=== PATIENT | male | born 1940 | race Caucasian/White ===

== ENCOUNTER 2018-04-21 09:40 | Observation (INO) | payer MEDICARE ==
[~2018-04-21] VITALS: Ht 177.8 cm; Wt 102.2 kg
[~2018-04-21 09:40] MED LIST: AMLO5 PO; ASPI81CH PO; ASPI81EC PO; ATEN25 PO; BENAML10/2 PO; BRILINTA90 MG PO; CLOP75 PO; Isosorbide Mono60 MG PO; LISI5 PO; LIVALO2 MG PO; NITR.4SL SL; OMEP20ER PO; Percocet 5-3251 EACH PO; UBID10 PO; Zofran Odt4 MG SL
--- NOTE | 2018-04-21 13:34 | NUR ---
PT RESTING QUIETLY IN BED, DENIES CURRENT NEEDS. VSS. WAITING FOR ADMIT ROOM TO BE CLEANED. DR. VYAS HAS CALLED PT'S , NIKKI, TO UPDATE HER WITH RESULTS OF PROCEDURE AND PLAN TO ADMIT PT OVERNIGHT.
--- NOTE | 2018-04-21 15:55 | NUR ---
Arrival: Pt arrived to unit at approx 1415. VSS. In no apparent sign of distress. Pt is A&Ox4. Calls appropriately. Repositions self. C/o very mild chest discomfort. Pt compliant with R wrist restrictions. R radial access site is free from s/sx of bleed, infection or hematoma. Perfusion and cap refill wnl to all extremities. R wrist immobilizer in place. R TR band inflated with 8mls of air and will start deflating at approx 1630. Pt currently resting in bed with call light within reach. Denies any furher questions, complaints or requests at this time. Will continue to monitor.
--- NOTE | 2018-04-21 16:17 | NUR ---
Shift Summary No acute changes since initial shift assessment. VSS. In no apparent sign of distress. No changes in mentation. Pt has been compliant with R wrist restrictions. Calls appropriately and repositioning self. Denies any pain at this time. Denies any acute complaints or events so far since arrival to unit. R radial access site is free from s/sx of bleed or hematoma. R TR band in place and will deflate starting at approx 1630. Pt is currently resting in bed with call light within reach. Denies any further questions, complaints or requests at this time. Will continue to monitor until report is given to sanju LR.
--- NOTE | 2018-04-21 18:45 | NUR ---
Update: Deflated TR band and removed per protocols/orders at 1845. Clear dressing placed. Site is free from s/sx of bleed or hematoma. R wrist immobilizer placed to R wrist.
--- NOTE | 2018-04-21 19:58 | NUR ---
CARE ASSUMPTION PT A&O X4. R RADIAL ACCESS SITE ASSESSED W/ DAY SHIFT RN. SMALL AMOUNT OF DRY, RED BLOOD. NO NEW BLEEDING, NO HEMATOMA. CLEAR DRESSING COVERING SITE, ARM BOARD IN PLACE W/ PT INSTRUCTION NOT TO BEND OR USE ARM. PT COOPERATIVE. PT DENIES ANY PAIN OR DISCOMFORT. WILL CONTINUE TO MONITOR AND PROVIDE CARE.
--- NOTE | 2018-04-22 04:28 | NUR ---
SHIFT SUMMARY PT A&O X4, INDEPENDENT IN ROOM. R RADIAL ACCESS SITE WNL, NO BLEEDING, NO HEMATOMA, CLEAR DRESSING COVERING SITE, & ARM BOARD IN PLACE. NO C/O CP T/O SHIFT. NO C/O ANY PAIN OR DISCOMFORT. VSS. WILL CONTINUE TO MONITOR AND PROVIDE CARE UNTIL REPORT OFF TO DAY SHIFT RN.
[2018-04-22 05:23] LABS: Hematocrit 44.6 % (37.0-53.0); Hemoglobin 14.7 g/dL (13.5-17.5); Mean Platelet Volume 9.4 fL (9.1-12.4); Platelet Count 220 K/mm3 (150-400); RDW Coefficient Variation 14.9 % (11.7-14.2); RDW Standard Deviation 49.7 fL (35.1-46.3); White Blood Cell Count 10.03 K/mm3 (4.00-11.30)
[2018-04-22 05:25] LABS: Mean Corpuscular Volume 91 fL (80-100)
[2018-04-22 05:47] LABS: Anion Gap 7 mmol/L (6-16); Blood Urea Nitrogen 15 mg/dL (8-24); Bun/Creatinine Ratio 12.9 (12.0-20.0); CO2, Blood 23 mmol/L (21-32); Calcium, Blood 8.6 mg/dL (8.5-10.1); Chloride, Blood 113 mmol/L (98-108); Creatinine, Blood 1.16 mg/dL (0.60-1.20); Glomerular Filtration Rate >60 (60-); Glucose, Blood 90 mg/dL (70-99); Potassium, Blood 4.1 mmol/L (3.5-5.5); Sodium, Blood 143 mmol/L (136-145)
[2018-04-22] MEDS ORDERED: Isosorbide Mono30 MG PO (07:26)
== END 2018-04-22 08:45 | disposition home or self-care (01) ==
LOC: MHTC 09:40 → PCU 12:51
PROVIDERS: Internal Medicine Interventional Cardiology; ADMIT Internal Medicine Cardiovascular Disease
DX: I25.10 Atherosclerotic heart disease of native coronary artery without angina pectoris (principal); I44.0 Atrioventricular block, first degree; I45.2 Bifascicular block; I45.10 Unspecified right bundle-branch block; E78.5 Hyperlipidemia, unspecified; I12.9 Hypertensive chronic kidney disease with stage 1 through stage 4 chronic kidney disease, or unspecified chronic kidney disease; N18.9 Chronic kidney disease, unspecified; G47.33 Obstructive sleep apnea (adult) (pediatric); K21.9 Gastro-esophageal reflux disease without esophagitis; I73.9 Peripheral vascular disease, unspecified; I67.9 Cerebrovascular disease, unspecified; Z95.5 Presence of coronary angioplasty implant and graft; Z79.82 Long term (current) use of aspirin; Z87.891 Personal history of nicotine dependence; Z79.899 Other long term (current) drug therapy; Z88.0 Allergy status to penicillin; Z88.8 Allergy status to other drugs, medicaments and biological substances; Z88.6 Allergy status to analgesic agent; Z79.02 Long term (current) use of antithrombotics/antiplatelets
CPT/HCPCS: 36415; 80048; 85027; 85347; 92978; 93005; 93010; 93458; 93571; 99152; C1769; C1874; C1887; C1894; C9600; G0378; J1644; J3010; J7030; J7040; Q9967

== ENCOUNTER 2020-04-03 09:37 | Observation (INO) | payer MEDICARE ==
[~2020-04-03] VITALS: Ht 177.8 cm; Wt 97.1 kg
[~2020-04-03 09:37] MED LIST changes: -ASPI81CH PO; +Aspirin EC81 MG PO; +Isosorbide Mono30 MG PO
[2020-04-03] MEDS ORDERED: RANOLAZINE ER500 M2 PO (09:54)
[2020-04-03 10:13] LABS: BASOPHILS ABSOLUTE AUTO 0.04 K/mm3 (0.00-0.23); BASOPHILS PERCENT AUTO 0 % (0-2); EOSINOPHILS ABSOLUTE AUTO 0.28 K/mm3 (0.00-0.68); EOSINOPHILS PERCENT AUTO 3 % (0-6); Hematocrit 46.6 % (37.0-53.0); Hemoglobin 15.7 g/dL (13.5-17.5); IMMATURE GRAN ABSOLUTE AUTO 0.02 K/mm3 (0.00-0.10); IMMATURE GRAN PERCENT AUTO 0 % (0-1); LYMPHOCYTES ABSOLUTE AUTO 3.83 K/mm3 (0.84-5.20); LYMPHOCYTES PERCENT AUTO 42 % (21-46); MONOCYTES ABSOLUTE AUTO 1.31 K/mm3 (0.16-1.47); MONOCYTES PERCENT AUTO 14 % (4-13); Mean Corpuscular HGB 30.1 pg (26.0-34.0); Mean Corpuscular HGB Conc 33.7 g/dL (31.5-36.5); Mean Corpuscular Volume 89 fL (80-100); NEUTROPHILS ABSOLUTE AUTO 3.69 K/mm3 (1.96-9.15); NEUTROPHILS PERCENT AUTO 40 % (41-73); Platelet Count 262 K/mm3 (150-400); RDW Standard Deviation 51.6 fL (35.1-46.3); Red Blood Cell Count 5.22 M/mm3 (4.30-5.90); White Blood Cell Count 9.17 K/mm3 (4.00-11.30)
[2020-04-03 10:24] LABS: Alanine Aminotransfer (ALT/SGP 17 U/L (12-78); Albumin, Blood 3.6 g/dL (3.4-5.0); Alk Phos 86 U/L (50-136); Anion Gap 6 mmol/L (6-16); Aspartate Aminotrans (AST/SGOT 16 U/L (12-37); Bilirubin, Total 0.7 mg/dL (0.1-1.0); Blood Urea Nitrogen 23 mg/dL (8-24); Bun/Creatinine Ratio 15.2 (12.0-20.0); CO2, Blood 26 mmol/L (21-32); Calcium, Blood 8.7 mg/dL (8.5-10.1); Chloride, Blood 109 mmol/L (98-108); Creatinine, Blood 1.51 mg/dL (0.60-1.20); Globulin, Blood 3.7 g/dL (2.2-4.0); Glomerular Filtration Rate 48 (60-); Glucose, Blood 105 mg/dL (70-99); Potassium, Blood 3.9 mmol/L (3.5-5.5); Sodium, Blood 141 mmol/L (136-145); Total Protein, Blood 7.3 g/dL (6.4-8.2); Troponin I <0.015 ng/mL (0.000-0.040)
[2020-04-03] MEDS ORDERED: AMLODIPINE BESY10 MG PO (12:07)
[2020-04-03] MEDS ORDERED: Imdur-ER60 MG PO (12:07)
[2020-04-03 13:34] LABS: Source, Urine Voided
[2020-04-03 13:43] LABS: Appearance, Urine Clear (Clear); Bilirubin, Urine Neg (Neg); Blood, Urine Neg (Neg); Color, Urine Yellow (P-Yellow); Glucose Qualitative, Urine Neg (Neg); Ketones, Urine Neg (Neg); Leukocyte Esterase, Urine Neg (Neg); Nitrite, Urine Neg (Neg); Protein, Urine 1+ (Neg); Urobilinogen, Urine NORM (Normal); pH, Urine 6.5 (5.0-8.0)
--- NOTE | 2020-04-03 19:14 | NUR ---
SHIFT SUMMARY: PATIENT ADMIT (OBS) FROM ED THIS SHIFT. PT A&O X4; CALM AND COOPERATIVE WITH CARE. TELE IN PLACE; SR @ 65 PER WINDING INSPECTOR AND TESTER. NO C/O CHEST PAIN OR PRESSURE; TROPONIN AT 1600; ELEVATED AT 0.045; NEXT TROPONIN AT 2200; DR AWARE; PT ASYMPTOMATIC. REPORT GIVEN TO ONCOMING RN.
[2020-04-03 22:34] LABS: Source, Urine Clean Catch
[2020-04-03 22:36] LABS: Bilirubin, Urine Neg (Neg); Blood, Urine Neg (Neg); Glucose Qualitative, Urine Neg (Neg); Ketones, Urine Neg (Neg); Leukocyte Esterase, Urine 1+ (Neg); Nitrite, Urine Neg (Neg); Protein, Urine Neg (Neg); Urobilinogen, Urine NORM (Normal)
[2020-04-03 22:37] LABS: Appearance, Urine Clear (Clear); Color, Urine Yellow (P-Yellow)
[2020-04-03 22:44] LABS: Red Blood Cells, Urine 0-2 /hpf (0-2)
[2020-04-03 22:45] LABS: Bacteria Mod /hpf; Squamous Epithelial Cells Not Seen /hpf (Few)
[2020-04-04 04:51] LABS: BASOPHILS ABSOLUTE AUTO 0.03 K/mm3 (0.00-0.23); BASOPHILS PERCENT AUTO 0 % (0-2); EOSINOPHILS ABSOLUTE AUTO 0.26 K/mm3 (0.00-0.68); EOSINOPHILS PERCENT AUTO 3 % (0-6); Hematocrit 45.7 % (37.0-53.0); Hemoglobin 15.3 g/dL (13.5-17.5); IMMATURE GRAN ABSOLUTE AUTO 0.02 K/mm3 (0.00-0.10); IMMATURE GRAN PERCENT AUTO 0 % (0-1); LYMPHOCYTES ABSOLUTE AUTO 2.92 K/mm3 (0.84-5.20); LYMPHOCYTES PERCENT AUTO 34 % (21-46); MONOCYTES ABSOLUTE AUTO 1.12 K/mm3 (0.16-1.47); MONOCYTES PERCENT AUTO 13 % (4-13); Mean Corpuscular HGB 30.1 pg (26.0-34.0); Mean Corpuscular HGB Conc 33.5 g/dL (31.5-36.5); Mean Corpuscular Volume 90 fL (80-100); Mean Platelet Volume 9.6 fL (9.1-12.4); NEUTROPHILS PERCENT AUTO 50 % (41-73); Platelet Count 244 K/mm3 (150-400); RDW Coefficient Variation 16.1 % (11.7-14.2); Red Blood Cell Count 5.09 M/mm3 (4.30-5.90); White Blood Cell Count 8.65 K/mm3 (4.00-11.30)
[2020-04-04 05:11] LABS: Albumin, Blood 3.3 g/dL (3.4-5.0); Albumin/Globulin Ratio 0.9 (0.8-1.8); Bilirubin, Total 0.7 mg/dL (0.1-1.0); Bun/Creatinine Ratio 13.8 (12.0-20.0); Calcium, Blood 8.8 mg/dL (8.5-10.1); Creatinine, Blood 1.45 mg/dL (0.60-1.20); Globulin, Blood 3.6 g/dL (2.2-4.0); Potassium, Blood 4.1 mmol/L (3.5-5.5); Total Protein, Blood 6.9 g/dL (6.4-8.2)
--- NOTE | 2020-04-04 05:50 | NUR ---
GREEN BUILDING ENERGY ENGINEER SUMMARY PT A&OX4, ABLE TO MAKE NEEDS KNOWN. PLEASANT AND COOPERATIVE TO CARE. NO ACUTE CHANGES NOTED TO PT THIS SHIFT. CALM AND RESTED IN BED T/O SHIFT. TROPONIN AT 2148 IS 0.018. NO C/O CHEST PAIN / PRESSURE, NO SOB, OR N&V. PT AMBULATED TO BATHROOM W/O ANY ISSUES. NO C/O DIZZINESS OR ANY OTHER DISCOMFORT. NO C/O PAIN OR N/T. PT RESTING IN BED AT THIS TIME. CALL LIGHT WITHIN REACH.
[2020-04-04] MEDS ORDERED: LEVFLO500 PO (14:17)
--- NOTE | 2020-04-04 14:59 | NUR ---
PT ABLE TO GET UP AND AMBULATE TO THE BATHROOM AND SHOWER, PT DENIES ANY CHEST PAIN OR DIZZINESS. PT WANTING TO GO HOME. SPOKE WITH DR SAMPSON AND NO NEED FOR PT EVAL. SPOKE WITH [facility] AND THEY WILL BE UP TO PLACE ZIO MONITOR PRIOR TO DISCHARGE.
--- NOTE | 2020-04-04 15:31 | NUR ---
DISCHARGE INSTRUCTIONS REVIEWED WITH PT. IV DC'D INTACT BY RN STUDENT. RX FAXED TO [facility]. [facility] PLACED ZIO PATCH PRIOR TO DISCHARGE. PT ABLE TO GET UP AND AMBULATE TO BATHROOM AND SHOWER INDEP, PT REMAINS ASYMPTOMATIC. PT AWAITING RIDE HOME AT THIS TIME.
--- NOTE | 2020-04-04 15:36 | NUR ---
PT DISCHARGED HOME, ESCORTED OUT VIA W/C AT 1536 TO D/C HOME WITH SPOUSE.
== END 2020-04-04 15:37 | disposition home or self-care (01) ==
LOC: ER 09:37 → MEDS 09:38 → ENPENDDIS 04-04 14:05 → MEDS 04-04 15:37
PROVIDERS: Emergency Medicine; Nurse Practitioner Acute Care; ADMIT Internal Medicine
DX: R55 Syncope and collapse (principal); I10 Essential (primary) hypertension; I25.10 Atherosclerotic heart disease of native coronary artery without angina pectoris; N17.9 Acute kidney failure, unspecified; M25.552 Pain in left hip; E78.5 Hyperlipidemia, unspecified; J44.9 Chronic obstructive pulmonary disease, unspecified; I25.2 Old myocardial infarction; Z88.6 Allergy status to analgesic agent; Z88.0 Allergy status to penicillin; Z88.8 Allergy status to other drugs, medicaments and biological substances; Z79.82 Long term (current) use of aspirin; Z79.899 Other long term (current) drug therapy; Z87.891 Personal history of nicotine dependence; Z95.5 Presence of coronary angioplasty implant and graft
CPT/HCPCS: 36415; 71045; 73502; 80053; 81001; 83735; 83880; 84484; 85025; 87086; 93005; 93010; 93246; 99285-25; A9270; G0378; J7120

== ENCOUNTER 2021-08-18 06:21 | Day surgery (SDC) | payer MEDICARE ==
[~2021-08-18] VITALS: Ht 177.8 cm; Wt 103.8 kg
[~2021-08-18 06:21] MED LIST changes: +AMLODIPINE BESY10 MG PO; +Imdur-ER60 MG PO; +LEVFLO500 PO; +RANOLAZINE ER500 M2 PO
[2021-08-18] MEDS ORDERED: RANO500T (06:51)
[2021-08-18] MEDS ORDERED: FISH OIL 1,2001 EAC7 (06:52)
[2021-08-18] MEDS ORDERED: CLOPIDOGREL75 MG (06:52)
--- NOTE | 2021-08-18 07:31 | NUR ---
08/18/21 0731 ABIMAEL CHURCHILL 2% LIDONCAINE NEB TX 5ML PER DR STANLEY PRE PROCEDURE STARTED [id number]
== END 2021-08-18 09:21 | disposition home or self-care (01) ==
LOC: ORSCSDS 06:21
PROVIDERS: Surgery
PROC: 0DB78ZX Excision of Stomach, Pylorus, Via Natural or Artificial Opening Endoscopic, Diagnostic (ICD-10-PCS; principal; 2021-08-18 07:30)
PROC: 0DBL8ZX Excision of Transverse Colon, Via Natural or Artificial Opening Endoscopic, Diagnostic (ICD-10-PCS; principal; 2021-08-18 07:30)
PROC: 0DBK8ZX Excision of Ascending Colon, Via Natural or Artificial Opening Endoscopic, Diagnostic (ICD-10-PCS; principal; 2021-08-18 07:30)
PROC: 0DBN8ZX Excision of Sigmoid Colon, Via Natural or Artificial Opening Endoscopic, Diagnostic (ICD-10-PCS; principal; 2021-08-18 07:30)
DX: R93.5 Abnormal findings on diagnostic imaging of other abdominal regions, including retroperitoneum (principal); R14.0 Abdominal distension (gaseous); K21.9 Gastro-esophageal reflux disease without esophagitis; D12.2 Benign neoplasm of ascending colon; D12.3 Benign neoplasm of transverse colon; K29.70 Gastritis, unspecified, without bleeding; K57.30 Diverticulosis of large intestine without perforation or abscess without bleeding; G47.33 Obstructive sleep apnea (adult) (pediatric); I25.10 Atherosclerotic heart disease of native coronary artery without angina pectoris; I10 Essential (primary) hypertension; Z87.891 Personal history of nicotine dependence; E78.5 Hyperlipidemia, unspecified; Z79.899 Other long term (current) drug therapy; Z79.02 Long term (current) use of antithrombotics/antiplatelets
CPT/HCPCS: 88305; J2704; J7120

== ENCOUNTER 2022-06-13 15:23 | Inpatient (IN) | payer MEDICARE ==
[~2022-06-13] VITALS: Ht 177.8 cm; Wt 102.5 kg
[~2022-06-13 15:23] MED LIST changes: +CLOPIDOGREL75 MG; +FISH OIL 1,2001 EAC7; +RANO500T PO
[2022-06-13 15:56] LABS: BASOPHILS ABSOLUTE AUTO 0.06 K/mm3 (0.00-0.23); BASOPHILS PERCENT AUTO 1 % (0-2); EOSINOPHILS ABSOLUTE AUTO 0.54 K/mm3 (0.00-0.68); EOSINOPHILS PERCENT AUTO 6 % (0-6); Hematocrit 50.7 % (37.0-53.0); Hemoglobin 16.9 g/dL (13.5-17.5); IMMATURE GRAN ABSOLUTE AUTO 0.01 K/mm3 (0.00-0.10); IMMATURE GRAN PERCENT AUTO 0 % (0-1); LYMPHOCYTES ABSOLUTE AUTO 4.28 K/mm3 (0.84-5.20); LYMPHOCYTES PERCENT AUTO 43 % (21-46); MONOCYTES ABSOLUTE AUTO 0.95 K/mm3 (0.16-1.47); MONOCYTES PERCENT AUTO 10 % (4-13); Mean Corpuscular HGB 29.6 pg (26.0-34.0); Mean Corpuscular HGB Conc 33.3 g/dL (31.5-36.5); Mean Corpuscular Volume 89 fL (80-100); Mean Platelet Volume 9.3 fL (9.1-12.4); NEUTROPHILS ABSOLUTE AUTO 4.02 K/mm3 (1.96-9.15); NEUTROPHILS PERCENT AUTO 41 % (41-73); Platelet Count 272 K/mm3 (150-400); RDW Coefficient Variation 17.3 % (11.7-14.2); RDW Standard Deviation 54.8 fL (35.1-46.3); Red Blood Cell Count 5.71 M/mm3 (4.30-5.90); White Blood Cell Count 9.86 K/mm3 (4.00-11.30)
[2022-06-13 16:11] LABS: Albumin, Blood 4.2 g/dL (3.4-5.0); Albumin/Globulin Ratio 1.2 (0.8-1.8); Bilirubin, Total 0.6 mg/dL (0.1-1.0); Bun/Creatinine Ratio 12.1 (12.0-20.0); Calcium, Blood 9.2 mg/dL (8.5-10.1); Creatinine, Blood 1.32 mg/dL (0.60-1.20); Globulin, Blood 3.5 g/dL (2.2-4.0); Potassium, Blood 4.3 mmol/L (3.5-5.5); Total Protein, Blood 7.7 g/dL (6.4-8.2)
[2022-06-13 19:19] LABS: Anti-Xa UFH, PHA Monitoring <0.10 IU/mL; Prothrombin Time Results 10.5 Sec (9.7-11.5)
[2022-06-14 02:21] LABS: Hematocrit 46.5 % (37.0-53.0); Hemoglobin 15.7 g/dL (13.5-17.5); Mean Corpuscular HGB 29.5 pg (26.0-34.0); Mean Corpuscular HGB Conc 33.8 g/dL (31.5-36.5); Mean Corpuscular Volume 87 fL (80-100); Mean Platelet Volume 9.5 fL (9.1-12.4); Platelet Count 230 K/mm3 (150-400); RDW Coefficient Variation 17.1 % (11.7-14.2); RDW Standard Deviation 53.7 fL (35.1-46.3); Red Blood Cell Count 5.32 M/mm3 (4.30-5.90)
[2022-06-14 02:35] LABS: Bun/Creatinine Ratio 10.3 (12.0-20.0); Calcium, Blood 8.9 mg/dL (8.5-10.1); Creatinine, Blood 1.17 mg/dL (0.60-1.20)
--- NOTE | 2022-06-14 06:21 | NUR ---
SHIFT SUMMARY PT WAS ADMITTED LAST NIGHT FOR AN NSTEMI. TROP'S HAVE NOT PEAKED YET WITH THE LAST ONE REPORTED [id number]. PT HAS BEEN NPO FOR A POSSIBLE PROCEDURE TODAY. HE HAS A HEP GTT RUNNING AT 13 U/KG/HR. HE ONLY HAS ONE C/O ANGINA AND IT WAS AFTER HE AMBULATED IN THE ROOM. HE STATED THAT IT WAS SHARP AND WENT AWAY ONCE HE WAS RESTING. HE HAS BEEN SR ON TELE, SP02>90% ON ROOM AIR, AND BP HAS BEEN STABLE. PT HAS HAD NO COMPLAINTS THIS SHIFT, HE JUST IS WAITING FOR A PROCEDURE. PT IS A&OX4 AND CALLS APPROPRIATELY. SEE NOTES FOR ANY UPDATES. ,
--- NOTE | 2022-06-14 07:39 | NUR ---
DR MARIN TO BEDSIDE FOR INFORMED CONSENT FOR ANGIO. VERBAL ORDER GIVEN TO STOP HEPARIN GTT AND REMOVE R WRIST IV. HEPARIN STOPPED AND IV REMOVED. PATIENT ALERT AND ORIENTED. RESTING COMFORTABLY IN BED AT THIS TIME. SPEAKING WITH ON THE PHONE.
--- NOTE | 2022-06-14 12:09 | NUR ---
ECHO COMPLETED AT 0930. PATIENT IMMEDIATELY TAKEN TO THERMOMETER TESTER. 1145 THERMOMETER TESTER RN CALLED PCU TO INFORM THAT PATIENT WILL REQUIRE A NITRO DRIP AND A ROOM IN ICU FOR MONITORING. SON CALLED AND WAS UPDATED. REPORT CALLED TO CIERA DAVIDSON RN IN ICU AT 1205.
--- NOTE | 2022-06-14 17:36 | NUR ---
SUMMARY Assumed care of pt on arrival from [facility] at 1153. Report received from [facility] staff and PCU nurse. Pt transferred to ICU for nitroglycerin drip. Per report, pt has blockage to circumflex that could not be accessed. Plan to transfer patient to another facility. On arrival, pt reports 6/10 chest pain. He states that during this hospitalization, the best his pain has been is a 2/10 and the worst is 9/10. Educated pt on nitro drip and morphine. Morphine given. Pt oriented to unit an transfer process. Aggrastat drip started. Pt received assigment in Coronary Care Unit, bed 11, at [facility]. Report called to Lex LR. Pt transported via [facility]. Prior to departure, noted that pt's BP dropped. Nitro titrated down, pt continued to report 5/10 CP. BP did not improve. Drip stopped and Dr Mueller notified. Provider ordered fluid bolus and dopamine drip so that nitro could be restarted. Attempted additional IV, unsuccessful. By the time Dr Mueller rounded on patient, BP had improved in total absence of nitro and pt stated his chest pain was gone. Provider ordered for pt to be transported on aggrastat only. Lex LR updated on changes and pt departed from facility at 1640.
== END 2022-06-14 16:40 | disposition short-term general hospital (02) | DRG 282 ==
LOC: ER 15:23 → ICUW 19:38 → PCU 19:38 → ICUW 06-14 12:07
PROVIDERS: Nurse Practitioner Acute Care; Pharmacist; Student in an Organized Health Care Education/Training Program; ADMIT Internal Medicine
PROC: 4A023N7 Measurement of Cardiac Sampling and Pressure, Left Heart, Percutaneous Approach (ICD-10-PCS; principal; 2022-06-14)
PROC: B211YZZ Fluoroscopy of Multiple Coronary Arteries using Other Contrast (ICD-10-PCS; 2022-06-14)
PROC: B24BZZ3 Ultrasonography of Heart with Aorta, Intravascular (ICD-10-PCS; 2022-06-14)
DX: I21.4 Non-ST elevation (NSTEMI) myocardial infarction (principal); E78.5 Hyperlipidemia, unspecified; I12.9 Hypertensive chronic kidney disease with stage 1 through stage 4 chronic kidney disease, or unspecified chronic kidney disease; I73.9 Peripheral vascular disease, unspecified; N18.32 Chronic kidney disease, stage 3b; I25.10 Atherosclerotic heart disease of native coronary artery without angina pectoris; R73.9 Hyperglycemia, unspecified; Z95.828 Presence of other vascular implants and grafts; Z95.5 Presence of coronary angioplasty implant and graft; Z90.49 Acquired absence of other specified parts of digestive tract; Z98.890 Other specified postprocedural states; Z98.52 Vasectomy status; Z87.891 Personal history of nicotine dependence; Z88.0 Allergy status to penicillin; Z88.8 Allergy status to other drugs, medicaments and biological substances; Z79.82 Long term (current) use of aspirin; Z79.899 Other long term (current) drug therapy
CPT/HCPCS: 36415; 71046; 76937; 80048; 80053; 83036; 84484; 85025; 85027; 85347; 85520; 85610; 85730; 93005; 93010; 93454; 96365; 96366; 99152; 99153; 99285-25; A9270; C1769; C1887; C1894; C8929; J1265; J1644; J2250; J2270; J3010; J3246; J7030; J7050; Q9957; Q9967

== ENCOUNTER 2022-10-17 15:20 | Inpatient (IN) | payer MEDICARE | END 2022-10-19 15:10 | disposition home health service (06) | DRG 66 | LOC: ER 15:20 → ICUE 15:21 | PROVIDERS: ADMIT Student in an Organized Health Care Education/Training Program | DX: I62.01 Nontraumatic acute subdural hemorrhage (principal); I62.02 Nontraumatic subacute subdural hemorrhage; E78.5 Hyperlipidemia, unspecified; I10 Essential (primary) hypertension; I73.9 Peripheral vascular disease, unspecified; I25.10 Atherosclerotic heart disease of native coronary artery without angina pectoris; N40.0 Benign prostatic hyperplasia without lower urinary tract symptoms; R47.81 Slurred speech; R29.810 Facial weakness; G47.33 Obstructive sleep apnea (adult) (pediatric); Z88.0 Allergy status to penicillin; Z88.8 Allergy status to other drugs, medicaments and biological substances; Z79.82 Long term (current) use of aspirin; Z79.01 Long term (current) use of anticoagulants; Z79.899 Other long term (current) drug therapy; I25.2 Old myocardial infarction; Z90.49 Acquired absence of other specified parts of digestive tract; Z98.52 Vasectomy status; Z95.5 Presence of coronary angioplasty implant and graft; Z87.891 Personal history of nicotine dependence; Z98.890 Other specified postprocedural states; Z86.79 Personal history of other diseases of the circulatory system; Z86.74 Personal history of sudden cardiac arrest; Z95.0 Presence of cardiac pacemaker; Z95.820 Peripheral vascular angioplasty status with implants and grafts ==

== ENCOUNTER 2022-10-25 11:26 | Emergency (ER) | payer MEDICARE ==
[~2022-10-25] VITALS: Ht 177.8 cm; Wt 113.4 kg
[~2022-10-25 11:26] MED LIST changes: +CARVEDILOL6.25 MG PO; +CEPH500 PO; +EZETIMIBE10 M6 PO; +ISOSORBIDE MONO30 MG PO; +LEVE500 PO; +PLAVIX75 MG PO; +TAMS.4ER PO
[2022-10-25 12:30] LABS: Albumin, Blood 3.5 g/dL (3.4-5.0); Albumin/Globulin Ratio 1.1 (0.8-1.8); Bilirubin, Total 0.8 mg/dL (0.1-1.0); Bun/Creatinine Ratio 13.2 (12.0-20.0); Calcium, Blood 9.1 mg/dL (8.5-10.1); Creatinine, Blood 1.52 mg/dL (0.60-1.20); Globulin, Blood 3.2 g/dL (2.2-4.0); Potassium, Blood 5.1 mmol/L (3.5-5.5); Total Protein, Blood 6.7 g/dL (6.4-8.2)
[2022-10-25 13:22] LABS: BASOPHILS ABSOLUTE AUTO 0.05 K/mm3 (0.00-0.23); BASOPHILS PERCENT AUTO 1 % (0-2); EOSINOPHILS ABSOLUTE AUTO 0.48 K/mm3 (0.00-0.68); EOSINOPHILS PERCENT AUTO 5 % (0-6); Hematocrit 42.1 % (37.0-53.0); IMMATURE GRAN ABSOLUTE AUTO 0.02 K/mm3 (0.00-0.10); IMMATURE GRAN PERCENT AUTO 0 % (0-1); LYMPHOCYTES PERCENT AUTO 19 % (21-46); MONOCYTES ABSOLUTE AUTO 1.05 K/mm3 (0.16-1.47); MONOCYTES PERCENT AUTO 11 % (4-13); Mean Corpuscular HGB 29.7 pg (26.0-34.0); Mean Corpuscular HGB Conc 33.3 g/dL (31.5-36.5); Mean Corpuscular Volume 89 fL (80-100); Mean Platelet Volume 9.8 fL (9.1-12.4); NEUTROPHILS ABSOLUTE AUTO 6.11 K/mm3 (1.96-9.15); NEUTROPHILS PERCENT AUTO 64 % (41-73); Platelet Count 359 K/mm3 (150-400); RDW Coefficient Variation 16.6 % (11.7-14.2); RDW Standard Deviation 54.1 fL (35.1-46.3); Red Blood Cell Count 4.72 M/mm3 (4.30-5.90); White Blood Cell Count 9.51 K/mm3 (4.00-11.30)
[2022-10-25 15:11] VITALS: BP 112/68
== END 2022-10-25 15:13 | disposition home or self-care (01) ==
LOC: ER 11:26
PROVIDERS: Emergency Medicine
DX: I62.00 Nontraumatic subdural hemorrhage, unspecified (principal); Z87.891 Personal history of nicotine dependence; Z88.0 Allergy status to penicillin; Z88.8 Allergy status to other drugs, medicaments and biological substances; Z88.6 Allergy status to analgesic agent
CPT/HCPCS: 36415; 70450; 80053; 85025; 93005; 93010; 96360; 99285-25; J7030

== ENCOUNTER 2024-11-01 09:02 | Emergency (ER) | payer OTHER ==
[~2024-11-01] VITALS: Ht 177.8 cm; Wt 98.9 kg
[~2024-11-01 09:02] MED LIST changes: +ACET325 PO; +FAMO20 PO; +LINZESS145 MCG PO
[2024-11-01] MEDS ORDERED: METO25ER PO (09:32)
[2024-11-01] MEDS ORDERED: ATOR10 PO (09:33)
[2024-11-01 09:36] LABS: BASOPHILS ABSOLUTE AUTO 0.04 K/mm3 (0.00-0.23); BASOPHILS PERCENT AUTO 0 % (0-2); EOSINOPHILS ABSOLUTE AUTO 0.02 K/mm3 (0.00-0.68); EOSINOPHILS PERCENT AUTO 0 % (0-6); Hematocrit 50.1 % (37.0-53.0); Hemoglobin 17.0 g/dL (13.5-17.5); IMMATURE GRAN ABSOLUTE AUTO 0.05 K/mm3 (0.00-0.10); IMMATURE GRAN PERCENT AUTO 1 % (0-1); LYMPHOCYTES ABSOLUTE AUTO 1.39 K/mm3 (0.84-5.20); LYMPHOCYTES PERCENT AUTO 15 % (21-46); MONOCYTES ABSOLUTE AUTO 1.52 K/mm3 (0.16-1.47); MONOCYTES PERCENT AUTO 16 % (4-13); Mean Corpuscular HGB Conc 33.9 g/dL (31.5-36.5); Mean Corpuscular Volume 89 fL (80-100); NEUTROPHILS ABSOLUTE AUTO 6.28 K/mm3 (1.96-9.15); NEUTROPHILS PERCENT AUTO 68 % (41-73); NRBC ABSOLUTE 0.00 K/mm3 (0.00-0.02); NRBC Auto 0.0 /100 WBC (0.0-0.2); Platelet Count 198 K/mm3 (150-400); RDW Coefficient Variation 16.1 % (11.7-14.2); RDW Standard Deviation 52.5 fL (35.1-46.3)
[2024-11-01 09:52] LABS: Alanine Aminotransfer (ALT/SGP 14.0 U/L (12-78); Albumin, Blood 3.4 g/dL (3.4-5.0); Albumin/Globulin Ratio 0.8 (0.8-1.8); Anion Gap 9.0 mmol/L (3-11); Aspartate Aminotrans (AST/SGOT 42.0 U/L (12-37); Bilirubin, Total 0.7 mg/dL (0.1-1.0); Blood Urea Nitrogen 23.0 mg/dL (8-24); CO2, Blood 22.0 mmol/L (21-32); Calcium, Blood 8.6 mg/dL (8.5-10.1); Chloride, Blood 108.0 mmol/L (98-108); Creatinine, Blood 1.52 mg/dL (0.60-1.20); Globulin, Blood 4.3 g/dL (2.2-4.0); Glucose, Blood 101.0 mg/dL (70-99); Potassium, Blood 5.2 mmol/L (3.5-5.5); Sodium, Blood 134.0 mmol/L (136-145); Total Protein, Blood 7.7 g/dL (6.4-8.2)
[2024-11-01] MEDS ORDERED: Ipratropium/Albuterol SulF 2.5-0.5MG/3 ML Amp INH ONE (11:30)
[2024-11-01 13:06] LABS: CORONAVIRUS COVID-19 AG Negative (NEGATIVE)
[2024-11-01 14:43] LABS: Source, Urine Clean Catch
[2024-11-01 14:49] LABS: Bilirubin, Urine Neg (Neg); Color, Urine Yellow (P-Yellow); Glucose Qualitative, Urine Neg (Neg); Ketones, Urine 2+ (Neg); Leukocyte Esterase, Urine Neg (Neg); Protein, Urine 2+ (Neg); Specific Gravity, Urine 1.020 (1.003-1.022); Urobilinogen, Urine NORM (Normal)
[2024-11-01 15:28] LABS: Red Blood Cells, Urine 0-2 /hpf (0-2); White Blood Cells, Urine 0-2 /hpf (0-5)
[2024-11-01 16:07] LABS: Influenza A/2009-H1 Not Detected (NOT DETECT); SARS-Cov-2 (COVID-19), BioFire Not Detected (NOT DETECT)
[2024-11-01] MEDS ORDERED: AMOCLA875 PO (16:17)
[2024-11-01 16:30] VITALS: BP 130/72
== END 2024-11-01 17:06 | disposition home or self-care (01) ==
LOC: ER 09:02
PROVIDERS: Emergency Medicine
DX: J98.8 Other specified respiratory disorders (principal); I25.2 Old myocardial infarction; E78.5 Hyperlipidemia, unspecified; I10 Essential (primary) hypertension; I25.10 Atherosclerotic heart disease of native coronary artery without angina pectoris; Z91.89 Other specified personal risk factors, not elsewhere classified; Z87.891 Personal history of nicotine dependence; Z95.5 Presence of coronary angioplasty implant and graft; Z95.0 Presence of cardiac pacemaker; Z88.6 Allergy status to analgesic agent; Z88.8 Allergy status to other drugs, medicaments and biological substances; Z88.0 Allergy status to penicillin; Z79.82 Long term (current) use of aspirin; Z79.02 Long term (current) use of antithrombotics/antiplatelets; Z79.899 Other long term (current) drug therapy; Z91.010 Allergy to peanuts
CPT/HCPCS: 0202U; 36415; 71046; 80053; 81001; 83605; 83880; 84443; 84484; 85025; 87040; 87428-QW; 93005; 93010; 99284-25; A9270

== ENCOUNTER 2024-11-08 18:48 | Emergency (ER) | payer OTHER ==
[~2024-11-08] VITALS: Ht 180.3 cm; Wt 95.2 kg
[~2024-11-08 18:48] MED LIST changes: +AMOCLA875 PO; +ATOR10 PO; +METO25ER PO
[2024-11-08 19:10] LABS: BASOPHILS ABSOLUTE AUTO 0.04 K/mm3 (0.00-0.23); BASOPHILS PERCENT AUTO 0 % (0-2); EOSINOPHILS ABSOLUTE AUTO 0.50 K/mm3 (0.00-0.68); EOSINOPHILS PERCENT AUTO 4 % (0-6); Hematocrit 45.3 % (37.0-53.0); Hemoglobin 15.1 g/dL (13.5-17.5); IMMATURE GRAN ABSOLUTE AUTO 0.04 K/mm3 (0.00-0.10); IMMATURE GRAN PERCENT AUTO 0 % (0-1); LYMPHOCYTES ABSOLUTE AUTO 2.08 K/mm3 (0.84-5.20); LYMPHOCYTES PERCENT AUTO 16 % (21-46); MONOCYTES ABSOLUTE AUTO 1.31 K/mm3 (0.16-1.47); MONOCYTES PERCENT AUTO 10 % (4-13); Mean Corpuscular HGB Conc 33.3 g/dL (31.5-36.5); Mean Corpuscular Volume 89 fL (80-100); NEUTROPHILS ABSOLUTE AUTO 8.72 K/mm3 (1.96-9.15); NEUTROPHILS PERCENT AUTO 69 % (41-73); NRBC ABSOLUTE 0.00 K/mm3 (0.00-0.02); NRBC Auto 0.0 /100 WBC (0.0-0.2); Platelet Count 296 K/mm3 (150-400); RDW Coefficient Variation 15.9 % (11.7-14.2); RDW Standard Deviation 51.8 fL (35.1-46.3)
[2024-11-08 19:31] LABS: Alanine Aminotransfer (ALT/SGP 46.0 U/L (12-78); Albumin, Blood 3.3 g/dL (3.4-5.0); Albumin/Globulin Ratio 0.9 (0.8-1.8); Anion Gap 6.0 mmol/L (3-11); Aspartate Aminotrans (AST/SGOT 34.0 U/L (12-37); Bilirubin, Total 0.7 mg/dL (0.1-1.0); Blood Urea Nitrogen 24.0 mg/dL (8-24); CO2, Blood 26.0 mmol/L (21-32); Calcium, Blood 9.4 mg/dL (8.5-10.1); Chloride, Blood 108.0 mmol/L (98-108); Creatinine, Blood 1.28 mg/dL (0.60-1.20); Globulin, Blood 3.7 g/dL (2.2-4.0); Glucose, Blood 105.0 mg/dL (70-99); Potassium, Blood 4.4 mmol/L (3.5-5.5); Sodium, Blood 136.0 mmol/L (136-145); Total Protein, Blood 7.0 g/dL (6.4-8.2)
[2024-11-08 20:00] VITALS: BP 108/63
== END 2024-11-08 20:20 | disposition home or self-care (01) ==
LOC: ER 18:48
PROVIDERS: Emergency Medicine
DX: R07.2 Precordial pain (principal); I10 Essential (primary) hypertension; E78.5 Hyperlipidemia, unspecified; I25.2 Old myocardial infarction; Z88.8 Allergy status to other drugs, medicaments and biological substances; Z79.82 Long term (current) use of aspirin; Z79.899 Other long term (current) drug therapy; Z88.0 Allergy status to penicillin
CPT/HCPCS: 71046; 80053; 84484; 85025; 93005; 93010; 99285-25

== ENCOUNTER 2024-11-11 02:58 | Observation (INO) | payer OTHER ==
[~2024-11-11] VITALS: Ht 177.8 cm; Wt 97.8 kg
[2024-11-11 03:22] LABS: BASOPHILS ABSOLUTE AUTO 0.04 K/mm3 (0.00-0.23); BASOPHILS PERCENT AUTO 0 % (0-2); EOSINOPHILS ABSOLUTE AUTO 0.44 K/mm3 (0.00-0.68); EOSINOPHILS PERCENT AUTO 5 % (0-6); Hematocrit 43.8 % (37.0-53.0); Hemoglobin 15.0 g/dL (13.5-17.5); IMMATURE GRAN ABSOLUTE AUTO 0.03 K/mm3 (0.00-0.10); IMMATURE GRAN PERCENT AUTO 0 % (0-1); LYMPHOCYTES ABSOLUTE AUTO 3.34 K/mm3 (0.84-5.20); LYMPHOCYTES PERCENT AUTO 34 % (21-46); MONOCYTES ABSOLUTE AUTO 1.55 K/mm3 (0.16-1.47); MONOCYTES PERCENT AUTO 16 % (4-13); Mean Corpuscular HGB Conc 34.2 g/dL (31.5-36.5); Mean Corpuscular Volume 89 fL (80-100); NEUTROPHILS ABSOLUTE AUTO 4.48 K/mm3 (1.96-9.15); NEUTROPHILS PERCENT AUTO 45 % (41-73); NRBC ABSOLUTE 0.00 K/mm3 (0.00-0.02); NRBC Auto 0.0 /100 WBC (0.0-0.2); Platelet Count 333 K/mm3 (150-400); RDW Coefficient Variation 16.5 % (11.7-14.2); RDW Standard Deviation 53.6 fL (35.1-46.3)
[2024-11-11 04:23] LABS: Alanine Aminotransfer (ALT/SGP 33.0 U/L (12-78); Albumin, Blood 3.1 g/dL (3.4-5.0); Albumin/Globulin Ratio 0.8 (0.8-1.8); Anion Gap 11.0 mmol/L (3-11); Aspartate Aminotrans (AST/SGOT 29.0 U/L (12-37); Bilirubin, Total 0.5 mg/dL (0.1-1.0); Blood Urea Nitrogen 23.0 mg/dL (8-24); CO2, Blood 24.0 mmol/L (21-32); Calcium, Blood 8.7 mg/dL (8.5-10.1); Chloride, Blood 110.0 mmol/L (98-108); Creatinine, Blood 1.32 mg/dL (0.60-1.20); Globulin, Blood 3.7 g/dL (2.2-4.0); Glucose, Blood 100.0 mg/dL (70-99); Potassium, Blood 4.7 mmol/L (3.5-5.5); Sodium, Blood 140.0 mmol/L (136-145); Total Protein, Blood 6.8 g/dL (6.4-8.2)
[2024-11-11] MEDS ORDERED: NS 1,000 ML IV ONE ×2 (06:20→07:22)
[2024-11-11] MEDS ORDERED: FentaNYL Citrate 50 MCG/ML 2 ML Injection IV PRN ×2 (06:20→08:25)
[2024-11-11] MEDS ORDERED: Ondansetron HCl 2 MG / ML 2ML Vial IV PRN (06:20)
[2024-11-11 08:24] LABS: Influenza A, PCR NEGATIVE (NEGATIVE); Influenza B, PCR NEGATIVE (NEGATIVE); Resp Syncytial Virus, PCR NEGATIVE (NEGATIVE); SARS-Cov-2 (COVID-19) PCR, MMC NEGATIVE (NEGATIVE)
--- NOTE | 2024-11-11 08:30 | NUR ---
ARRIVAL TO PCU 5 PT ARRIVED TO PCU 5 AT APPROXIMATELY 0800. PT STOOD AND TRANSFERED FROM [facility] WITH [facility]. PT A&Ox4, COMMUNICATES NEEDS APPROPRIATELY, ORIENTED TO CALL LIGHT/UNIT. BP STABLE, SINUS/PACED 60-80's, DENIES CP/PRESSURE. SpO2> 92% RA, DENIES SOB. NO C/O PAIN. CALL LIGHT IN REACH, BED IN LOWEST POSITION.
[2024-11-11 09:05] VITALS: BP 150/79
[2024-11-11 09:35] LABS: Anti-Xa UFH, PHA Monitoring <0.10 IU/mL; Prothrombin Time Results 11.8 Sec (9.7-11.5)
[2024-11-11] MEDS ORDERED: Dose Adjust by Pharmacy XX STA (09:48)
[2024-11-11] MEDS ORDERED: Heparin Sodium,Porcine/0.5 NS 500 ML IV SCH (09:50)
[2024-11-11] MEDS ORDERED: Heparin Sodium 5000 Units/ML 1ML MDV IV ONE (09:50)
[2024-11-11 12:27] VITALS: BP 138/59
[2024-11-11 15:09] VITALS: BP 141/60
--- NOTE | 2024-11-11 17:43 | NUR ---
SHIFT SUMMARY SEE PREVIOUS NOTE, NO ACUTE CHANGES. VITAL SIGNS REMAINED STABLE, NO EPISODES OF CP/PRESSURE SINCE ARRIVAL TO PCU. SpO2> 92% RA, DENIES SOB. BP STABLE, SINUS/PACED 60-80's. STRESS TEST COMPLETE WITH SHIFT. HEPARIN gtt INSUFING PER EMAR MANAGED BY PHARMACY. NO OTHER EVENTS, WILL REPORT TO ONCOMING RN.
[2024-11-11 19:57] VITALS: BP 127/62
[2024-11-12 00:44] VITALS: BP 144/65
[2024-11-12 03:10] VITALS: BP 124/66
[2024-11-12 03:14] LABS: BASOPHILS ABSOLUTE AUTO 0.05 K/mm3 (0.00-0.23); BASOPHILS PERCENT AUTO 1 % (0-2); EOSINOPHILS ABSOLUTE AUTO 0.48 K/mm3 (0.00-0.68); EOSINOPHILS PERCENT AUTO 5 % (0-6); Hematocrit 40.8 % (37.0-53.0); Hemoglobin 13.6 g/dL (13.5-17.5); IMMATURE GRAN ABSOLUTE AUTO 0.02 K/mm3 (0.00-0.10); IMMATURE GRAN PERCENT AUTO 0 % (0-1); LYMPHOCYTES ABSOLUTE AUTO 3.42 K/mm3 (0.84-5.20); LYMPHOCYTES PERCENT AUTO 39 % (21-46); MONOCYTES ABSOLUTE AUTO 1.22 K/mm3 (0.16-1.47); MONOCYTES PERCENT AUTO 14 % (4-13); Mean Corpuscular HGB Conc 33.3 g/dL (31.5-36.5); Mean Corpuscular Volume 89 fL (80-100); NEUTROPHILS ABSOLUTE AUTO 3.68 K/mm3 (1.96-9.15); NEUTROPHILS PERCENT AUTO 41 % (41-73); NRBC ABSOLUTE 0.00 K/mm3 (0.00-0.02); NRBC Auto 0.0 /100 WBC (0.0-0.2); Platelet Count 310 K/mm3 (150-400); RDW Coefficient Variation 16.4 % (11.7-14.2); RDW Standard Deviation 52.9 fL (35.1-46.3)
[2024-11-12 03:36] LABS: Alanine Aminotransfer (ALT/SGP 26.0 U/L (12-78); Albumin, Blood 2.9 g/dL (3.4-5.0); Albumin/Globulin Ratio 0.9 (0.8-1.8); Anion Gap 8.0 mmol/L (3-11); Aspartate Aminotrans (AST/SGOT 20.0 U/L (12-37); Bilirubin, Total 0.6 mg/dL (0.1-1.0); Blood Urea Nitrogen 22.0 mg/dL (8-24); CO2, Blood 26.0 mmol/L (21-32); Calcium, Blood 8.6 mg/dL (8.5-10.1); Chloride, Blood 110.0 mmol/L (98-108); Creatinine, Blood 1.32 mg/dL (0.60-1.20); Globulin, Blood 3.4 g/dL (2.2-4.0); Glucose, Blood 94.0 mg/dL (70-99); Potassium, Blood 4.5 mmol/L (3.5-5.5); Sodium, Blood 139.0 mmol/L (136-145); Total Protein, Blood 6.3 g/dL (6.4-8.2)
[2024-11-12] MEDS ORDERED: Dose Adjust by Pharmacy XX STA (03:55)
--- NOTE | 2024-11-12 05:55 | NUR ---
SHIFT SUMMARY PT A&O X4, PT IS FORGETFUL AT TIMES. HR IN THE 60'S-70'S, SR WITH PACED BEATS, HE DENIES ANY CP/PRESSURE, SBP STABLE. SpO2 >92% ON RA, HE DENIES ANY SOB. PT UP AT SIDE OF BED USING URINAL T/O SHIFT. HEPARIN GTT INFUSING PER EMAR. PT NPO SINCE [place] PENDING CARDIOLOGY REVIEW OF STRESS TEST. PT DENIES ANY QUESTIONS OR CONCERNS AT THIS TIME. CALL LIGHT IN REACH. WILL MONITOR PT AND REPORT TO ONCOMING RN.
[2024-11-12 08:50] VITALS: BP 130/62
[2024-11-12] MEDS ORDERED: Isosorbide Mononitrate 30 MG TABCR PO SCH (09:00)
[2024-11-12] MEDS ORDERED: Isosorbide Mononitrate 60 MG TABCR PO SCH (09:00)
[2024-11-12 11:39] VITALS: BP 129/55
[2024-11-12] MEDS ORDERED: METO25ER PO (14:18)
--- NOTE | 2024-11-12 17:24 | NUR ---
SHIFT SUMMARY A&Ox4, CALLS AND COMMUNICATES NEEDS APPROPRIATELY. SpO2> 92% RA, DENIES SOB. BP STABLE, PACED 60's DENIES CP/PRESSURE. BARIUM SWALLOW DONE THIS SHIFT. HEPARIN gtt INSUFING PER EMAR MANAGED BY PHARMACY TURNING OFF AT 1800 FOR DISCHARGE PER CARDIOLOGY. NO C/O PAIN. CONTINENT OF URINE AND BOWEL. NO OTHER EVENTS, WILL REPORT TO ONCOMING RN.
--- NOTE | 2024-11-12 18:42 | NUR ---
DISCHARGE SUMMARY SEE PREVIOUS NOTE. NO ACUTE CHANGES. DISCHARGE INSTRUCTIONS PROVIDED WITH FAMILY AT BEDSIDE. PT TAKEN OUT BY CLINICAL STAFF VIA WHEELCHAIR WITH ALL PT BELONGINGS AT APPROXIMATELY 1810.
== END 2024-11-12 18:50 | disposition home or self-care (01) ==
LOC: ER 02:58 → PCU 02:59
PROVIDERS: Emergency Medicine; Family Medicine; ADMIT Internal Medicine
DX: I21.4 Non-ST elevation (NSTEMI) myocardial infarction (principal); I25.10 Atherosclerotic heart disease of native coronary artery without angina pectoris; I73.9 Peripheral vascular disease, unspecified; I44.2 Atrioventricular block, complete; I10 Essential (primary) hypertension; E78.5 Hyperlipidemia, unspecified; R13.10 Dysphagia, unspecified; Z87.891 Personal history of nicotine dependence; Z79.02 Long term (current) use of antithrombotics/antiplatelets; Z79.82 Long term (current) use of aspirin; Z79.899 Other long term (current) drug therapy; Z88.0 Allergy status to penicillin; Z88.6 Allergy status to analgesic agent; Z88.8 Allergy status to other drugs, medicaments and biological substances; Z95.0 Presence of cardiac pacemaker; Z95.5 Presence of coronary angioplasty implant and graft
CPT/HCPCS: 36415; 71046; 74230; 78452; 80053; 83690; 83880; 84484; 85025; 85520; 85610; 87637; 92610; 92611; 93005; 93010; 93017; 93306; 96374; 96375; 96376; 99285-25; A9270; A9500; G0378; J0456; J0706; J1644; J2785; J7030; J7050